=== PATIENT | female | born 1990 | race Caucasian/White ===

== ENCOUNTER 2016-07-11 16:38 | Observation (INO) | payer OTHER ==
--- NOTE | 2016-07-11 18:06 | ED ---
Nausea/Vomiting/Diarrhea HPI - General Chief complaint: Nausea/Vomiting/Diarrhea Stated complaint: Body Aches/Diarrhea/Vomiting Time Seen by Provider: 07/11/16 17:36 Source: patient, RN notes reviewed Mode of arrival: ambulatory Limitations: no limitations - History of Present Illness Initial comments: Patient is a 25-year-old female presents to the emergency room for evaluation of nausea, vomiting diarrhea. Patient states on Saturday she began with cough and congestion. Patient states she has been having on-and-off hot flashes and chills. Patient states on Saturday she began with vomiting and diarrhea. Patient states been vomiting every day since Saturday. Patient denies recent travel outside the country. Patient denies sick contacts. Patient denies new foods. Patient denies recent antibiotics. Patient states the diarrhea has improved since Saturday. Patient states she's been taking antidiarrhea medication. Patient states she's coughing up green mucus. Patient does admit she smokes a pack per day. Patient denies throat pain. Patient denies abdominal pain. Patient denies chest pain. Patient denies pain or burning during urination, trouble urinating or blood in urine. Patient does admit that she is having bilateral flank pain. - Related Data Home Medications Medication Instructions Recorded Confirmed Loperamide [Imodium] 2 - 4 mg PO QID PRN 07/11/16 07/11/16 guaiFENesin [Mucinex] 600 mg PO Q12H PRN 07/11/16 07/11/16 Allergies Allergy/AdvReac Type Severity Reaction Status Date / Time Penicillins Allergy Unknown Verified 07/11/16 17:51 Childhood Review of Systems ROS Statement: Those systems with pertinent positive or pertinent negative responses have been documented in the HPI. ROS Other: All systems not noted in ROS Statement are negative. Past Medical History Past Medical History: No Reported History History of Any Multi-Drug Resistant Organisms: None Reported Past Surgical History: No Surgical Hx Reported Past Psychological History: No Psychological Hx Reported Smoking Status: Current every day smoker Past Alcohol Use History: Occasional Past Drug Use History: Marijuana General Exam - General Exam Comments Initial Comments: Sitting in exam room, no distress. Limitations: no limitations General appearance: alert, in no apparent distress Head exam: Present: atraumatic, normocephalic, normal inspection Eye exam: Present: normal appearance Pupils: Present: normal accommodation ENT exam: Present: normal exam, normal oropharynx, mucous membranes moist, TM's normal bilaterally, normal external ear exam Neck exam: Present: normal inspection, full ROM. Absent: tenderness, lymphadenopathy Respiratory exam: Present: normal lung sounds bilaterally. Absent: respiratory distress Cardiovascular Exam: Present: regular rate, normal rhythm, normal heart sounds GI/Abdominal exam: Present: soft, normal bowel sounds. Absent: distended, tenderness, guarding, rebound, rigid Extremities exam: Present: normal inspection Back exam: Present: normal inspection, CVA tenderness (R), CVA tenderness (L) Neurological exam: Present: alert, oriented X3, CN II-XII intact, normal gait Psychiatric exam: Present: normal affect, normal mood Skin exam: Present: warm, dry, intact, normal color. Absent: rash Course Vital Signs 07/11/16 07/11/16 16:50 20:16 Temperature 99.0 F 99.1 F Pulse Rate 103 H 85 Respiratory 20 16 Rate Blood Pressure 128/83 137/66 O2 Sat by Pulse 98 96 Oximetry Medical Decision Making - Medical Decision Making Patient is a 25-year-old female presents to the emergency room for evaluation of nausea, vomiting, diarrhea and bilateral low back pain. Influenza negative. Urinalysis suspicious for urinary tract infection. Case discussed with Dr. Mckeon. Dr. Mckeon discussed case with Dr. Mathew who agree to admit patient. Patient will be kept here with IV fluid hydration to treat for gastroenteritis and will be treated with IV Levaquin for possible pyelonephritis. - Lab Data Result diagrams: 07/11/16 19:18 07/11/16 19:18 Lab Results 07/11/16 07/11/16 07/11/16 Range/Units 17:30 19:00 19:00 WBC (3.8-10.6) k/uL RBC (3.80-5.40) m/uL Hgb (11.4-16.0) gm/dL Hct (34.0-46.0) % MCV (80.0-100.0) fL MCH (25.0-35.0) pg MCHC (31.0-37.0) g/dL RDW (11.5-15.5) % Plt Count (150-450) k/uL Neutrophils % % Lymphocytes % % Monocytes % % Eosinophils % % Basophils % % Neutrophils # (1.3-7.7) k/uL Lymphocytes # (1.0-4.8) k/uL Monocytes # (0-1.0) k/uL Eosinophils # (0-0.7) k/uL Basophils # (0-0.2) k/uL Sodium (137-145) mmol/L Potassium (3.5-5.1) mmol/L Chloride (98-107) mmol/L Carbon Dioxide (22-30) mmol/L Anion Gap mmol/L BUN (7-17) mg/dL Creatinine (0.52-1.04) mg/dL Est GFR (MDRD) Af Amer (>60 ml/min/1.73 sqM) Est GFR (MDRD) Non-Af (>60 ml/min/1.73 sqM) Glucose (74-99) mg/dL Calcium (8.4-10.2) mg/dL Total Bilirubin (0.2-1.3) mg/dL AST (14-36) U/L ALT (9-52) U/L Alkaline Phosphatase (38-126) U/L Total Protein (6.3-8.2) g/dL Albumin (3.5-5.0) g/dL Urine Color Yellow Urine Appearance Turbid H (Clear) Urine pH 5.5 (5.0-8.0) Ur Specific [place] 1.024 (1.001-1.035) Urine Protein 1+ H (Negative) Urine Glucose (UA) Negative (Negative) Urine Ketones 1+ H (Negative) Urine Blood Small H (Negative) Urine Nitrite Negative (Negative) Urine Bilirubin Negative (Negative) Urine Urobilinogen 2.0 (<2.0) mg/dL Ur Leukocyte Esterase Large H (Negative) Urine RBC 12 H (0-5) /hpf Urine WBC 118 H (0-5) /hpf Ur Squamous Epith Cells 86 H (0-4) /hpf Amorphous Sediment Few H (None) /hpf Urine Bacteria Many H (None) /hpf Urine Mucus Occasional H (None) /hpf Urine HCG, Qual Not Detected (Not Detectd) Influenza Type A RNA Not Detected (Not Detectd) Influenza Type B (PCR) Not Detected (Not Detectd) 07/11/16 07/11/16 Range/Units 19:18 19:18 WBC 4.2 (3.8-10.6) k/uL RBC 5.60 H (3.80-5.40) m/uL Hgb 14.8 (11.4-16.0) gm/dL Hct 43.9 (34.0-46.0) % MCV 78.3 L (80.0-100.0) fL MCH 26.5 (25.0-35.0) pg MCHC 33.8 (31.0-37.0) g/dL RDW 13.9 (11.5-15.5) % Plt Count 145 L (150-450) k/uL Neutrophils % 54 % Lymphocytes % 35 % Monocytes % 6 % Eosinophils % 0 % Basophils % 0 % Neutrophils # 2.3 (1.3-7.7) k/uL Lymphocytes # 1.5 (1.0-4.8) k/uL Monocytes # 0.3 (0-1.0) k/uL Eosinophils # 0.0 (0-0.7) k/uL Basophils # 0.0 (0-0.2) k/uL Sodium 135 L (137-145) mmol/L Potassium 3.7 (3.5-5.1) mmol/L Chloride 98 (98-107) mmol/L Carbon Dioxide 24 (22-30) mmol/L Anion Gap 13 mmol/L BUN 11 (7-17) mg/dL Creatinine 0.66 (0.52-1.04) mg/dL Est GFR (MDRD) Af Amer >60 (>60 ml/min/1.73 sqM) Est GFR (MDRD) Non-Af >60 (>60 ml/min/1.73 sqM) Glucose 92 (74-99) mg/dL Calcium 9.1 (8.4-10.2) mg/dL Total Bilirubin 0.5 (0.2-1.3) mg/dL AST 35 (14-36) U/L ALT 37 (9-52) U/L Alkaline Phosphatase 53 (38-126) U/L Total Protein 7.4 (6.3-8.2) g/dL Albumin 4.3 (3.5-5.0) g/dL Urine Color Urine Appearance (Clear) Urine pH (5.0-8.0) Ur Specific [place] (1.001-1.035) Urine Protein (Negative) Urine Glucose (UA) (Negative) Urine Ketones (Negative) Urine Blood (Negative) Urine Nitrite (Negative) Urine Bilirubin (Negative) Urine Urobilinogen (<2.0) mg/dL Ur Leukocyte Esterase (Negative) Urine RBC (0-5) /hpf Urine WBC (0-5) /hpf Ur Squamous Epith Cells (0-4) /hpf Amorphous Sediment (None) /hpf Urine Bacteria (None) /hpf Urine Mucus (None) /hpf Urine HCG, Qual (Not Detectd) Influenza Type A RNA (Not Detectd) Influenza Type B (PCR) (Not Detectd) - Radiology Data Radiology results: report reviewed, image reviewed Disposition Clinical Impression: Gastroenteritis, Urinary tract infection Disposition: ADMITTED IP TO THIS HOSP Condition: Stable Referrals: Ventura Kong MD [Primary Care Provider] - 1-2 days Decision Date: 07/11/16
--- NOTE | 2016-07-11 18:49 | XR ---
EXAMINATION TYPE: XR chest 2V DATE OF EXAM: 07/11/2016 6:40 PM COMPARISON: NONE HISTORY: Chest pain per order. Flulike symptoms per patient TECHNIQUE: Frontal and lateral views of the chest are obtained. FINDINGS: There is suspicious patchy infiltrate in the right lower lobe confirmed on 2 views. No ple ural effusion or pneumothorax is seen bilaterally. Left lung is clear. The cardiac silhouette size is within normal limits. The osseous structures are intact. IMPRESSION: Suspicious right lower lobe infiltrate.
[2016-07-11] MEDS ORDERED: ONDANSETRON 4 MG/2 ML VIAL IVP STA (18:57)
[2016-07-11] MEDS ORDERED: SODIUM CHLORIDE 0.9% 1,000 ML IV ONE (18:57)
[2016-07-11 19:31] LABS: Basophils % (A) 0 %; CH 26.6; CHCM 34.1; Eosinophils % (A) 0 %; HCT 43.9 % (34.0-46.0); HDW 2.89; HGB 14.8 gm/dL (11.4-16.0); Luc # (Auto) 0.17; Luc % (Auto) 4; Lymphocytes # (A) 1.5 k/uL (1.0-4.8); Lymphocytes % (A) 35 %; MCH 26.5 pg (25.0-35.0); MCHC 33.8 g/dL (31.0-37.0); MCV 78.3 fL (80.0-100.0); Mean Platelet Volume 7.7; Monocytes # (A) 0.3 k/uL (0-1.0); Monocytes % (A) 6 %; Neutrophils # (A) 2.3 k/uL (1.3-7.7); Neutrophils % (A) 54 %; RDW 13.9 % (11.5-15.5); WBC 4.2 k/uL (3.8-10.6); WBC (Perox) 4.24
[2016-07-11 19:38] LABS: ALT 37 U/L (9-52); AST 35 U/L (14-36); Alkaline Phosphatase 53 U/L (38-126); Anion Gap 13 mmol/L; Blood Urea Nitrogen 11 mg/dL (7-17); Calcium 9.1 mg/dL (8.4-10.2); Carbon Dioxide 24 mmol/L (22-30); Chloride 98 mmol/L (98-107); Glucose 92 mg/dL (74-99); Non-African American GFR(MDRD) >60 (>60 ml/min/1.73 sqM); Potassium 3.7 mmol/L (3.5-5.1); Sodium 135 mmol/L (137-145); Total Bilirubin 0.5 mg/dL (0.2-1.3); Total Protein 7.4 g/dL (6.3-8.2)
[2016-07-11 19:41] LABS: Amorphous Sediment,Urine Few /hpf; Appearance,Urine Turbid (Clear); Bacteria,Urine Many /hpf; Bilirubin,Urine Negative (Negative); Glucose,Urine (UA) Negative (Negative); Ketones,Urine 1+ (Negative); Leukocyte Esterase,Urine Large (Negative); Mucus,Urine Occasional /hpf; Nitrite,Urine Negative (Negative); PH, Urine 5.5 (5.0-8.0); Particle Count 125206; Protein,Urine 1+ (Negative); RBC,Urine 12 /hpf (0-5); Specific Gravity,Urine 1.024 (1.001-1.035); Squamous Epithelial Cell,Urine 86 /hpf (0-4); UA Billing (MACRO vs. MICRO) MICRO; WBC,Urine 118 /hpf (0-5)
[2016-07-11] MEDS ORDERED: LEVOFLOXACIN 750MG-D5W PMX 750 MG in DEXTROSE/WATER 1 150ML.BAG IVPB STA (19:59)
[2016-07-11] MEDS ORDERED: NALOXONE 0.4 MG/ML 1 ML VIAL IV PRN (20:05)
[2016-07-11] MEDS ORDERED: ONDANSETRON 4 MG/2 ML VIAL IVP PRN (20:05)
[2016-07-11 21:22] VITALS: BMI 48.6
[2016-07-12] MEDS: SODIUM CHLORIDE 0.9% 1,000 ML IV SCH ×2 (00:21→09:51)
[2016-07-12] MEDS: HYDROcodone/APAP 5-325MG 1 EACH TAB PO PRN ×2 (00:48→08:59)
[2016-07-12 06:48] LABS: Aty Lym Flag Slight; CH 26.6; HCT 39.2 % (34.0-46.0); HGB 13.7 gm/dL (11.4-16.0); MCH 27.5 pg (25.0-35.0); MCV 78.5 fL (80.0-100.0); Mean Platelet Volume 8.3; RDW 13.8 % (11.5-15.5); WBC 3.1 k/uL (3.8-10.6); WBC (Perox) 3.33
[2016-07-12 07:13] LABS: ALT 31 U/L (9-52); AST 27 U/L (14-36); Alkaline Phosphatase 41 U/L (38-126); Anion Gap 9 mmol/L; Blood Urea Nitrogen 9 mg/dL (7-17); Calcium 8.5 mg/dL (8.4-10.2); Carbon Dioxide 24 mmol/L (22-30); Chloride 105 mmol/L (98-107); Glucose 89 mg/dL (74-99); Non-African American GFR(MDRD) >60 (>60 ml/min/1.73 sqM); Sodium 138 mmol/L (137-145); Total Bilirubin 0.4 mg/dL (0.2-1.3); Total Protein 6.1 g/dL (6.3-8.2)
[2016-07-12 07:24] LABS: Add Differential Manual Differential
[2016-07-12 07:40] LABS: Potassium 3.6 mmol/L (3.5-5.1)
[2016-07-12 08:20] LABS: Nucleated Red Blood Cells 0 /100 WBC (0-0); Total Cells Counted 100
[2016-07-12 08:27] LABS: Reactive Lymphocytes Present
[2016-07-12 08:31] LABS: Polychromasia Present
[2016-07-12 12:22] VITALS: BP 103/44; PULSE 56; RESP 20; TEMP 97.7
--- NOTE | 2016-07-12 16:56 | HP ---
H&P AND DISCHARGE SUMMARY DATE OF ADMISSION: This is a 25-year-old pleasant female who came in with nausea, vomiting, and patient had flu-like symptoms that had been going on for about 4 to 5 days. Initially patient started having body aches, then started having diarrhea. Diarrhea has improved now and patient has bronchitis with greenish sputum production. Patient's chest x-ray was read as possibility of pneumonia although I reviewed the chest x-ray and my suspicion is low for pneumonia. Patient denied any UTI-like symptoms, although patient's urine is a contaminated urine sample. I do not believe patient has UTI. Patient may have symptomatic bacteriuria, although the urine sample is grossly contaminated at this point of time. Anyways, patient will be discharged today on levofloxacin, considering her severe bronchitis and patient also wheeze on exam; she may have starting of COPD or asthma. Patient will be given an albuterol inhaler to thin the secretions. As of now, I do not believe patient will require any systemic or inhalational steroids; may require them down the line. Extensive counseling regarding nicotine use was provided. REVIEW OF SYSTEMS: CONSTITUTIONAL: Patient denied any fever. Generalized body aches and myalgias, as mentioned above. HEENT: No recent visual problems or hearing problems. Denied any sore throat. CARDIOVASCULAR: No chest pain, orthopnea, PND, no palpitations, no syncope. PULMONARY: As described in HPI. GASTROINTESTINAL: As described in HPI. Patient denied any abdominal pain at this point of time. NEUROLOGICAL: No headaches, no weakness, no numbness. HEMATOLOGICAL: Denies any bleeding or petechiae. GENITOURINARY: As described in HPI. MUSCULOSKELETAL/RHEUMATOLOGICAL: Denies any joint pain, swelling, or any muscle pain. ENDOCRINE: Denies any polyuria or polydipsia. The rest of the 14 point review of systems is negative. Home medications include: 1. Loperamide. 2. Guaifenesin. ALLERGIES: PENICILLIN. PAST MEDICAL HISTORY: None. SOCIAL HISTORY: Patient does smoke. Occasional use of marijuana. Denied any alcohol abuse or any drug abuse. FAMILY HISTORY: Denied any family history of hypertension, diabetes mellitus in the family. PHYSICAL EXAMINATION: VITAL SIGNS: Temperature 97.7, pulse of 56, respiratory rate of 20, blood pressure 103/44. Saturating at 97% on room air. GENERAL: The patient is alert and oriented x3, not in any acute distress. Well developed, well nourished. HEENT: Pupils are round and equally reacting to light. EOMI. No scleral icterus. No conjunctival pallor. Normocephalic, atraumatic. No pharyngeal erythema. No thyromegaly. CARDIOVASCULAR: S1 and S2 present. No murmurs, rubs, or gallops. PULMONARY: Good air entry into bilateral lung dietz. Very minimal expiratory wheezing was appreciated. ABDOMEN: Soft, nontender, nondistended, normoactive bowel sounds. No palpable organomegaly. MUSCULOSKELETAL: No joint swelling or deformity. EXTREMITIES: No cyanosis, clubbing, or pedal edema. NEUROLOGICAL: Gross neurological examination did not reveal any focal deficits. SKIN: No rashes. LABORATORY DATA: CBC, CMP essentially within normal limits. UA showed 86 squamous epithelial cells, 118 WBC, RBC of 12. ASSESSMENT AND PLAN: 1. Viral gastroenteritis symptoms, improved. 2. Tracheobronchitis, for which patient will be discharged on levofloxacin. 3. Symptomatic bacteriuria, for which patient will not need any antibiotics, but anyways patient will be discharged on 5 days of Levaquin, which should help if she has UTI, but my suspicion is significantly low. 4. Obesity. Counseling was provided. 5. Nicotine abuse. Counseling was provided. 6. Mild asthma and/or chronic obstructive pulmonary disease exacerbation, for which patient will be given an albuterol inhaler. I do not believe patient will need inhalational steroids at this point of time. Counseling regarding nicotine cessation was provided. Patient will be discharged today. Patient will follow up with Dr. Kong in 3 to 7 days. Activity as tolerated. Low-calorie diet.
[2016-07-12] MEDS ORDERED: LEVOFLOXACIN 750 MG TAB PO SCH (20:00)
[2016-07-12] MEDS ORDERED: LEVOFLOXACIN 750MG-D5W PMX 750 MG in DEXTROSE/WATER 1 150ML.BAG IVPB SCH (20:00)
== END 2016-07-12 12:45 | disposition home or self-care (01) ==
LOC: EC 16:38 → 6PED 20:37
PROVIDERS: ADMIT Internal Medicine; ATTEND Internal Medicine
DX: A08.4 Viral intestinal infection, unspecified (principal); J45.909 Unspecified asthma, uncomplicated; J44.1 Chronic obstructive pulmonary disease with (acute) exacerbation; R82.71 Bacteriuria; F17.200 Nicotine dependence, unspecified, uncomplicated; Z88.0 Allergy status to penicillin; E66.9 Obesity, unspecified; Z68.42 Body mass index [BMI] 45.0-49.9, adult; N95.1 Menopausal and female climacteric states
CPT/HCPCS: 96365; 96375; 96361; 99285; 36415; 80053 ×2; 85025 ×2; 81001; 81025; 87502; 71020; G0378 ×2; J2405; J1956; 96366